=== PATIENT | male | born 1935 | race Caucasian/White ===

== ENCOUNTER → 2016-12-09 | Outpatient (CLI) | payer OTHER, MEDICARE ==
[~2016-12-09] MED LIST: ASPEC325 PO; CALC-354 PO; LOVA10TA3 PO; LSN5 PO; TYL325X PO
--- NOTE | 2016-12-09 13:02 | DIAGNOSTIC IMAGING REPORT ---
THYROID ULTRASONOGRAPHY CLINICAL HISTORY: Thyroid nodule COMPARISON STUDY: 08/04/2007 FINDINGS: The right lobe of the thyroid measures 3.7 x 1.5 x 1.7 cm. There is a 1 cm isoechoic upper pole right lobe nodule. The left lobe measures 3.6 x 1.6 x 1.1 cm. Within the midline, superior to the thyroid is a 4.3 x 4.1 x 4.2 cm mass. This mass remains unchanged from July 2007. The stability would seem to indicate a benign etiology. IMPRESSION: 1. 1 cm isoechoic upper pole right lobe thyroid nodule without suspicious characteristics 2. Stable x10 year 43 x 41 x 42 mm midline neck mass superior to the thyroid. 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 Electronically signed by: Alex Solomon M.D. 12/09/2016 1:01 PM Dictated Date/Time: 12/09/2016 12:56 PM
--- NOTE | 2016-12-15 07:27 | CODING QUERY MEDICAL NECESSITY ---
SUPPORTING DIAGNOSIS NEEDED A supporting diagnosis is required for the test/procedure performed on this patient in order for us to be reimbursed by the patient's insurance. Please provide a supporting diagnosis for the following test/procedure listed below next to the test name along with your signature. *If there is no additional diagnosis for this patient that would support the following test/procedure please document that below next to the test/procedure. Test(s)/Procedure(s) that require a supporting diagnosis: * DXA BONE DENSITY DIAGNOSIS: * DOS: 12/09/16 Provider Signature: Date: Thank you Janice Ojeda [facility] Once completed, please kindly fax back to [phone] For questions please call [phone]
== END | disposition home or self-care (01) ==
LOC: C.ULTR 11:36
PROVIDERS: ATTEND Family Medicine
DX: E04.1 Nontoxic single thyroid nodule (principal); R22.1 Localized swelling, mass and lump, neck; M43.9 Deforming dorsopathy, unspecified; Z13.820 Encounter for screening for osteoporosis

== ENCOUNTER → 2016-12-09 | Outpatient (CLI) | payer OTHER, MEDICARE | END | disposition home or self-care (01) | LOC: C.MAMM 10:52 | PROVIDERS: ATTEND Family Medicine | DX: M43.9 Deforming dorsopathy, unspecified (principal); Z13.820 Encounter for screening for osteoporosis ==

== ENCOUNTER → 2016-12-21 | Outpatient (CLI) | payer OTHER, MEDICARE ==
--- NOTE | 2016-12-28 12:07 | CODING QUERY MEDICAL NECESSITY ---
SUPPORTING DIAGNOSIS NEEDED A supporting diagnosis is required for the test/procedure performed on this patient in order for us to be reimbursed by the patient's insurance. Please provide a supporting diagnosis for the following test/procedure listed below next to the test name along with your signature. *If there is no additional diagnosis for this patient that would support the following test/procedure please document that below next to the test/procedure. Test(s)/Procedure(s) that require a supporting diagnosis: * VITAMIN D 25-HYDROXY DIAGNOSIS: * DOS: 12/21/16 Provider Signature: Date: Thank you Janice Ojeda [facility] Once completed, please kindly fax back to [phone] For questions please call [phone]
== END | disposition home or self-care (01) ==
LOC: C.LABBC 07:53
PROVIDERS: ATTEND Family Medicine
DX: M85.80 Other specified disorders of bone density and structure, unspecified site (principal); I10 Essential (primary) hypertension; E78.00 Pure hypercholesterolemia, unspecified; R73.03 Prediabetes

== ENCOUNTER → 2017-01-10 | Outpatient (CLI) | payer OTHER, MEDICARE ==
[2017-01-10 11:01] LABS: BASO % 0.8 %; BASO ABS # 0.05 K/uL (0-0.2); COMPLETE YES; HEMATOCRIT 41.3 % (42-52); IG% 0.2 %; LYMPH % 23.4 %; LYMPH ABS # 1.51 K/uL (1.2-3.4); MEAN CELL VOLUME 94.1 fL (80-100); MEAN CORPUSCULAR HEMOGLOBIN 31.4 pg (25-34); MEAN CORPUSCULAR HGB CONC 33.4 g/dl (32-36); MEAN PLATELET VOLUME 11.2 fL (7.4-10.4); MONO % 9.5 %; NEUT % 59.1 %; PLATELET COUNT 203 K/uL (130-400); RED BLOOD COUNT 4.39 M/uL (4.7-6.1); WHITE BLOOD COUNT 6.44 K/uL (4.8-10.8)
[2017-01-10 11:16] LABS: ALT/SGPT 24 U/L (12-78); AST/SGOT 23 U/L (15-37); BLOOD UREA NITROGEN 28 mg/dl (7-18); BUN/CREATININE RATIO 25.8 (10-20); CALCIUM 8.7 mg/dl (8.5-10.1); CARBON DIOXIDE 25 mmol/L (21-32); CHLORIDE 107 mmol/L (98-107); CHOLESTEROL 130 mg/dl (0-200); GLUCOSE 102 mg/dl (70-99); SODIUM 143 mmol/L (136-145); TRIGLYCERIDES 69 mg/dl (0-150); VERY LOW DENSITY LIPOPROT CALC 14 mg/dl
[2017-01-10 11:19] LABS: ALB/GLOB RATIO 1.1 (0.9-2); ALKALINE PHOSPHATASE 90 U/L (45-117); CHOLESTEROL/HDL RATIO 2.4; HDL CHOLESTEROL 55 mg/dl; LDL CHOLESTEROL CALCULATED 61 mg/dl
[2017-01-10 11:40] LABS: ESTIMATED AVERAGE GLUCOSE 120 mg/dl; HA1C FLAG Normal (Normal)
--- NOTE | 2017-01-14 12:25 | CODING QUERY MEDICAL NECESSITY ---
SUPPORTING DIAGNOSIS NEEDED A supporting diagnosis is required for the test/procedure performed on this patient in order for us to be reimbursed by the patient's insurance. Please provide a supporting diagnosis for the following test/procedure listed below next to the test name along with your signature. *If there is no additional diagnosis for this patient that would support the following test/procedure please document that below next to the test/procedure. Test(s)/Procedure(s) that require a supporting diagnosis: * GLYCATED HEMOGLOBIN DIAGNOSIS: * PSA DIAGNOSIS: * DOS: 01/10/17 Provider Signature: Date: Thank you Janice Ojeda [facility] Once completed, please kindly fax back to [phone] For questions please call [phone]
--- NOTE | 2017-02-04 09:52 | CODING QUERY MEDICAL NECESSITY ---
SUPPORTING DIAGNOSIS NEEDED A supporting diagnosis is required for the test/procedure performed on this patient in order for us to be reimbursed by the patient's insurance. Please provide a supporting diagnosis for the following test/procedure listed below next to the test name along with your signature. *If there is no additional diagnosis for this patient that would support the following test/procedure please document that below next to the test/procedure. Test(s)/Procedure(s) that require a supporting diagnosis: * GLYCATED HEMOGLOBIN DIAGNOSIS: * DOS: 01/10/17 Provider Signature: Date: Thank you Janice Ojeda [facility] Once completed, please kindly fax back to [phone] For questions please call [phone]
== END | disposition home or self-care (01) ==
LOC: C.LABBC 07:45
PROVIDERS: ATTEND Urology
DX: E78.00 Pure hypercholesterolemia, unspecified (principal); I10 Essential (primary) hypertension; R73.03 Prediabetes; R39.9 Unspecified symptoms and signs involving the genitourinary system; C61 Malignant neoplasm of prostate

== ENCOUNTER → 2017-05-17 | Outpatient (CLI) | payer OTHER, MEDICARE ==
[2017-05-17 11:14] LABS: HEMATOCRIT 39.6 % (42-52); MEAN CELL VOLUME 93.6 fL (80-100); MEAN CORPUSCULAR HEMOGLOBIN 30.5 pg (25-34); MEAN CORPUSCULAR HGB CONC 32.6 g/dl (32-36); MEAN PLATELET VOLUME 10.8 fL (7.4-10.4); PLATELET COUNT 175 K/uL (130-400); RED BLOOD COUNT 4.23 M/uL (4.7-6.1); WHITE BLOOD COUNT 5.58 K/uL (4.8-10.8)
[2017-05-17 11:30] LABS: ALT/SGPT 30 U/L (12-78); BLOOD UREA NITROGEN 23 mg/dl (7-18); BUN/CREATININE RATIO 21.1 (10-20); CALCIUM 8.7 mg/dl (8.5-10.1); CARBON DIOXIDE 28 mmol/L (21-32); CHLORIDE 107 mmol/L (98-107); CHOLESTEROL 117 mg/dl (0-200); GLUCOSE 94 mg/dl (70-99); POTASSIUM 4.1 mmol/L (3.5-5.1); SODIUM 140 mmol/L (136-145); TRIGLYCERIDES 39 mg/dl (0-150); VERY LOW DENSITY LIPOPROT CALC 8 mg/dl
[2017-05-17 11:33] LABS: ALB/GLOB RATIO 1.2 (0.9-2); ALKALINE PHOSPHATASE 70 U/L (45-117); AST/SGOT 29 U/L (15-37); CHOLESTEROL/HDL RATIO 2.4; HDL CHOLESTEROL 48 mg/dl; LDL CHOLESTEROL CALCULATED 61 mg/dl
[2017-05-17 11:35] LABS: ESTIMATED AVERAGE GLUCOSE 123 mg/dl; HA1C FLAG Normal (Normal)
== END | disposition home or self-care (01) ==
LOC: C.LABBC 07:41
PROVIDERS: ATTEND Family Medicine
DX: E78.00 Pure hypercholesterolemia, unspecified (principal); I10 Essential (primary) hypertension; R73.03 Prediabetes

== ENCOUNTER → 2017-12-15 | Outpatient (CLI) | payer OTHER, MEDICARE ==
[2017-12-15 10:58] LABS: BASO % 0.7 %; BASO ABS # 0.04 K/uL (0-0.2); EOS % 8.1 %; HEMATOCRIT 40.6 % (42-52); HEMOGLOBIN 13.7 g/dL (14.0-18.0); IG# 0.01 K/uL (0.00-0.02); LYMPH % 35.2 %; LYMPH ABS # 2.16 K/uL (1.2-3.4); MEAN CELL VOLUME 94.4 fL (80-100); MEAN CORPUSCULAR HEMOGLOBIN 31.9 pg (25-34); MEAN CORPUSCULAR HGB CONC 33.7 g/dl (32-36); MEAN PLATELET VOLUME 10.3 fL (7.4-10.4); MONO % 11.2 %; MONO ABS # 0.69 K/uL (0.11-0.59); NEUT % 44.6 %; NEUT ABS # 2.74 K/uL (1.4-6.5); PLATELET COUNT 172 K/uL (130-400); RED CELL DISTRIBUTION WIDTH CV 12.9 % (11.5-14.5); RED CELL DISTRIBUTION WIDTH SD 44.4 fL (36.4-46.3); WHITE BLOOD COUNT 6.14 K/uL (4.8-10.8)
[2017-12-15 11:32] LABS: BLOOD UREA NITROGEN 27 mg/dl (7-18); CALCIUM 8.9 mg/dl (8.5-10.1); CARBON DIOXIDE 27 mmol/L (21-32); CREATININE 1.08 mg/dl (0.60-1.40); GLUCOSE 120 mg/dl (70-99); POTASSIUM 3.9 mmol/L (3.5-5.1); SODIUM 138 mmol/L (136-145)
== END | disposition home or self-care (01) ==
LOC: C.LABBC 07:40
PROVIDERS: ATTEND Internal Medicine
DX: Z00.00 Encounter for general adult medical examination without abnormal findings (principal); R73.01 Impaired fasting glucose; I10 Essential (primary) hypertension; D64.9 Anemia, unspecified; R39.9 Unspecified symptoms and signs involving the genitourinary system